=== PATIENT | male | born 1965 | race African-American/Black ===

== ENCOUNTER 2025-07-27 15:35 | Inpatient (IN) | payer MEDICAID, OTHER ==
[~2025-07-27] VITALS: Ht 175.3 cm; Wt 82.6 kg
[2025-07-27 15:44] VITALS: O2SAT 98
[2025-07-27] MEDS: ASPIRIN 325MG TABLET PO ONE (16:16)
[2025-07-27 16:48] LABS: BASOPHILS % 1.0 % (0.0-2.0); EOSINOPHILS % 2.8 % (0.0-5.0); HEMATOCRIT. 40.2 % (42.0-52.0); HEMOGLOBIN. 13.2 g/dL (14.0-18.0); LYMPHOCYTES % 50.3 % (20.0-50.0); MEAN PLATELET VOLUME 9.4 fl (7.4-10.4); MONOCYTES % 6.5 % (2.0-8.0); NEUTROPHILS % 39.4 % (40.0-76.0); PLATELET 175 x1000/uL (130-400); RED BLOOD CELL COUNT 4.66 mill/uL (4.7-6.1); RED CELL DISTRIBUTION WIDTH 15.3 % (11.6-14.6)
[2025-07-27 17:02] LABS: CREATININE 1.1 mg/dL (0.6-1.3); UREA NITROGEN BLOOD 9 mg/dL (9-23)
[2025-07-27 17:03] LABS: TROPONIN I HIGH SENSITIVITY 12 ng/L (3.0-53)
[2025-07-27 17:04] LABS: ASPARTATE AMINOTRANSFERASE 17 IU/L (<34); BILIRUBIN DIRECT < 0.1 mg/dL (<=3.0); BILIRUBIN TOTAL 0.4 mg/dL (0.1-1.0); PROTEIN TOTAL 7.0 g/dL (6.0-8.3)
[2025-07-27] MEDS: KETOROLAC 30MG/ML VIAL IV ONE (18:58)
[2025-07-27] MEDS ORDERED: ONDANSETRON HCL 4MG/2ML INJ IV PRN (20:15)
[2025-07-27] MEDS ORDERED: ZOLPIDEM TARTRATE 5MG TABLET PO PRN (20:15)
[2025-07-27] MEDS ORDERED: DEXTROSE 50% WATER 50ML SYRINGE IV PRN (20:15)
[2025-07-27] MEDS ORDERED: CLONIDINE 0.1MG TABLET PO PRN (20:15)
[2025-07-27] MEDS ORDERED: MAGNESIUM/ALUMINUM HYDROXIDE/SIMETHICONE 30ML UDC PO PRN (20:15)
[2025-07-27] MEDS: BLOOD SUGAR DIAGNOSTIC STRIP TEST SCH (21:00)
[2025-07-27 21:07] LABS: CLARITY URINE CLEAR (CLEAR); COLOR URINE YELLOW (YELLOW); GLUCOSE URINE NEGATIVE (NEGATIVE); KETONES URINE TRACE (NEGATIVE); LEUKOCYTE ESTERASE URINE NEGATIVE (NEGATIVE); NITRITE URINE NEGATIVE (NEGATIVE); OCCULT BLOOD URINE NEGATIVE (NEGATIVE); PH URINE 6.5 (4.5-8.0); PROTEIN URINE NEGATIVE (NEGATIVE); SPECIFIC GRAVITY URINE 1.018 (1.005-1.030); UROBILINOGEN URINE 0.2 E.U./dL (0.2-1.0)
[2025-07-27 21:14] LABS: *AMPHETAMINES SCREEN URINE NEGATIVE (NEGATIVE); *BARBITURATES SCREEN URINE NEGATIVE (NEGATIVE)
[2025-07-27 21:15] LABS: *BENZODIAZEPINES SCREEN URINE NEGATIVE (NEGATIVE); *COCAINE SCREEN URINE NEGATIVE (NEGATIVE); CANNABINOID URINE SCREEN PRESUMPTIVE POSITIVE (NEGATIVE); ECSTASY MDMA SCREEN URINE NEGATIVE (NEGATIVE); METHADONE URINE SCREEN NEGATIVE (NEGATIVE); OPIATES URINE SCREEN NEGATIVE (NEGATIVE); PHENCYCLIDINE URINE SCREEN NEGATIVE (NEGATIVE)
[2025-07-27] MEDS ORDERED: NALOXONE HCL 0.4MG/ML VIAL IV PRN (21:15)
[2025-07-27 21:54] VITALS: BP 166/95; PULSE 69; RESP 20; TEMP 37.2; O2SAT 98
[2025-07-27] MEDS: MORPHINE SULFATE 4 MG/ML INJ (FOR IV/IM USE) IV PRN (21:57)
[2025-07-28] VITALS: BP 123/59; PULSE 60; RESP 18; TEMP 37; O2SAT 100
[2025-07-28] MEDS ORDERED: CLON0.1T PO (01:01)
[2025-07-28] MEDS ORDERED: VALS160T28 PO (01:01)
[2025-07-28] MEDS ORDERED: AMLO5TAB88 PO (01:01)
[2025-07-28] MEDS ORDERED: TAMSULOSIN (01:01)
[2025-07-28] MEDS ORDERED: METF-414 PO (01:01)
[2025-07-28 04:00] VITALS: BP_SYST 159; PULSE 53; RESP 18; TEMP 36.6; O2SAT 100
[2025-07-28 05:29] VITALS: BP 166/95; PULSE 69; RESP 18; TEMP 37.1964
[2025-07-28 08:00] VITALS: BP 148/81; PULSE 60; RESP 18; TEMP 36.6; O2SAT 100
[2025-07-28 08:08] LABS: TROPONIN I HIGH SENSITIVITY 15 ng/L (3.0-53)
[2025-07-28 08:11] LABS: CREATININE 1.0 mg/dL (0.6-1.3); UREA NITROGEN BLOOD 11 mg/dL (9-23)
[2025-07-28 08:12] LABS: BASOPHILS % 0.6 % (0.0-2.0); EOSINOPHILS % 3.0 % (0.0-5.0); HEMATOCRIT. 41.0 % (42.0-52.0); HEMOGLOBIN. 13.3 g/dL (14.0-18.0); LYMPHOCYTES % 49.5 % (20.0-50.0); MEAN PLATELET VOLUME 9.8 fl (7.4-10.4); MONOCYTES % 7.0 % (2.0-8.0); NEUTROPHILS % 39.9 % (40.0-76.0); PLATELET 168 x1000/uL (130-400); RED BLOOD CELL COUNT 4.73 mill/uL (4.7-6.1); RED CELL DISTRIBUTION WIDTH 15.1 % (11.6-14.6)
[2025-07-28] MEDS: ENOXAPARIN 40MG/0.4ML SYR SUBCUT SCH (09:00)
[2025-07-28] MEDS: PANTOPRAZOLE SODIUM 40 MG/VIAL IV SCH (09:00)
[2025-07-28] MEDS: ACETAMINOPHEN 325MG TABLET PO PRN (13:03)
[2025-07-28 16:00] VITALS: BP 139/74; PULSE 59; RESP 18; TEMP 36.6; O2SAT 98
[2025-07-28 20:00] VITALS: BP 143/84; PULSE 60; RESP 16; TEMP 36.9; O2SAT 98
[2025-07-28] MEDS: ATORVASTATIN CALCIUM 40MG TABLET PO SCH (20:39)
[2025-07-28] MEDS: AMLODIPINE 5MG TABLET PO SCH (20:44)
[2025-07-28] MEDS: GABAPENTIN 300MG CAPSULE PO SCH (22:00)
[2025-07-29] VITALS: BP 126/63; PULSE 71; RESP 17; TEMP 36.7; O2SAT 97
[2025-07-29 04:00] VITALS: BP 160/64; PULSE 57; RESP 16; TEMP 36.2; O2SAT 96
[2025-07-29 08:00] VITALS: BP 145/72; PULSE 62; RESP 18; TEMP 36.4; O2SAT 97
[2025-07-29] MEDS: ASPIRIN 81MG EC TABLET PO SCH (08:57)
[2025-07-29] MEDS ORDERED: REGADENOSON 0.4 MG/5 ML IV NR (09:00)
[2025-07-29 09:20] LABS: BASOPHILS % 0.6 % (0.0-2.0); EOSINOPHILS % 1.8 % (0.0-5.0); HEMATOCRIT. 45.3 % (42.0-52.0); HEMOGLOBIN. 14.7 g/dL (14.0-18.0); LYMPHOCYTES % 44.4 % (20.0-50.0); MEAN PLATELET VOLUME 10.1 fl (7.4-10.4); MONOCYTES % 5.1 % (2.0-8.0); NEUTROPHILS % 48.1 % (40.0-76.0); PLATELET 181 x1000/uL (130-400); RED BLOOD CELL COUNT 5.22 mill/uL (4.7-6.1); RED CELL DISTRIBUTION WIDTH 15.1 % (11.6-14.6)
[2025-07-29 09:39] LABS: CREATININE 1.0 mg/dL (0.6-1.3); UREA NITROGEN BLOOD 9 mg/dL (9-23)
[2025-07-29 10:59] LABS: TRIGLYCERIDE 62 mg/dL (0-150)
[2025-07-29 11:00] LABS: LDL CHOLESTEROL 158 mg/dL (5-100)
[2025-07-29] MEDS ORDERED: ASPI-1406 PO (11:46)
[2025-07-29] MEDS ORDERED: LIP40 PO (11:46)
[2025-07-29] MEDS ORDERED: HYDR-4001 PO (11:46)
[2025-07-29] MEDS ORDERED: GABA-1180 PO (11:46)
[2025-07-29 12:00] VITALS: BP 137/67; PULSE 56; RESP 18; TEMP 36.5; O2SAT 100
[2025-07-29 16:00] VITALS: BP 145/89; PULSE 74; RESP 18; TEMP 36.5; O2SAT 100
[2025-07-29 20:00] VITALS: BP 158/86; PULSE 65; RESP 18; TEMP 36.4; O2SAT 98
[2025-07-29 22:37] LABS: TROPONIN I HIGH SENSITIVITY 17 ng/L (3.0-53)
[2025-07-29] MEDS: HYDROCODONE/ACETAMINOPHEN 5/325MG TABLET PO PRN (23:34)
[2025-07-30] VITALS: BP 145/89; PULSE 74; RESP 18; TEMP 36.5; O2SAT 100
[2025-07-30 04:00] VITALS: BP 112/64; PULSE 53; RESP 18; TEMP 36.6; O2SAT 99
[2025-07-30 08:00] VITALS: BP 123/78; PULSE 64; RESP 18; TEMP 36.9; O2SAT 99
[2025-07-30 12:00] VITALS: BP 159/79; PULSE 71; RESP 18; TEMP 36.5; O2SAT 96
[2025-07-30 16:00] VITALS: BP 142/86; PULSE 75; RESP 18; TEMP 36.6; O2SAT 100
[2025-07-30] MEDS ORDERED: DEXTROSE 50% WATER 50ML SYRINGE IV PRN (17:15)
[2025-07-30] MEDS: INSULIN LISPRO 100 UNITS/ML SUBCUT SCH (17:40)
[2025-07-30 20:00] VITALS: BP 164/94; PULSE 67; RESP 16; TEMP 36.4; O2SAT 99
[2025-07-30] MEDS ORDERED: BLOOD SUGAR DIAGNOSTIC STRIP TEST SCH (21:00)
[2025-07-30 22:21] LABS: BASOPHILS % 1.4 % (0.0-2.0); EOSINOPHILS % 1.8 % (0.0-5.0); HEMATOCRIT. 49.7 % (42.0-52.0); HEMOGLOBIN. 16.0 g/dL (14.0-18.0); LYMPHOCYTES % 48.9 % (20.0-50.0); MEAN PLATELET VOLUME 10.2 fl (7.4-10.4); MONOCYTES % 6.3 % (2.0-8.0); NEUTROPHILS % 41.6 % (40.0-76.0); PLATELET 182 x1000/uL (130-400); RED BLOOD CELL COUNT 5.74 mill/uL (4.7-6.1); RED CELL DISTRIBUTION WIDTH 15.2 % (11.6-14.6)
[2025-07-30 22:28] LABS: INR 0.9
[2025-07-30 22:33] LABS: CREATININE 1.1 mg/dL (0.6-1.3)
[2025-07-30 22:34] LABS: UREA NITROGEN BLOOD 12 mg/dL (9-23)
[2025-07-31] VITALS: BP 157/65; PULSE 62; RESP 16; TEMP 36.2; O2SAT 100
[2025-07-31 04:00] VITALS: BP 123/49; PULSE 56; RESP 16; TEMP 36.2; O2SAT 97
[2025-07-31 08:00] VITALS: BP 155/88; PULSE 78; RESP 19; TEMP 37.9; O2SAT 97
[2025-07-31 12:00] VITALS: BP 140/79; PULSE 79; RESP 19; TEMP 36.9; O2SAT 97
[2025-07-31 16:00] VITALS: BP 162/79; PULSE 67; RESP 18; TEMP 36.7; O2SAT 100
[2025-07-31 19:29] LABS: BASOPHILS % 0.9 % (0.0-2.0); EOSINOPHILS % 1.8 % (0.0-5.0); HEMATOCRIT. 47.9 % (42.0-52.0); HEMOGLOBIN. 15.8 g/dL (14.0-18.0); LYMPHOCYTES % 42.4 % (20.0-50.0); MEAN PLATELET VOLUME 10.2 fl (7.4-10.4); MONOCYTES % 5.7 % (2.0-8.0); NEUTROPHILS % 49.2 % (40.0-76.0); PLATELET 172 x1000/uL (130-400); RED BLOOD CELL COUNT 5.50 mill/uL (4.7-6.1); RED CELL DISTRIBUTION WIDTH 15.2 % (11.6-14.6)
[2025-07-31 19:43] LABS: CREATININE 1.0 mg/dL (0.6-1.3); TROPONIN I HIGH SENSITIVITY 19 ng/L (3.0-53); UREA NITROGEN BLOOD 11 mg/dL (9-23)
[2025-07-31 20:00] VITALS: BP 129/64; PULSE 65; RESP 16; TEMP 36.1; O2SAT 97
[2025-08-01] VITALS: BP 131/87; PULSE 67; RESP 18; TEMP 36.4; O2SAT 99
[2025-08-01 04:00] VITALS: BP 148/77; PULSE 64; RESP 18; TEMP 36.7; O2SAT 99
[2025-08-01 07:10] LABS: BASOPHILS % 0.8 % (0.0-2.0); EOSINOPHILS % 1.8 % (0.0-5.0); HEMATOCRIT. 50.1 % (42.0-52.0); HEMOGLOBIN. 16.2 g/dL (14.0-18.0); LYMPHOCYTES % 56.7 % (20.0-50.0); MEAN PLATELET VOLUME 10.3 fl (7.4-10.4); MONOCYTES % 7.2 % (2.0-8.0); NEUTROPHILS % 33.5 % (40.0-76.0); PLATELET 171 x1000/uL (130-400); RED BLOOD CELL COUNT 5.79 mill/uL (4.7-6.1); RED CELL DISTRIBUTION WIDTH 15.1 % (11.6-14.6)
[2025-08-01 07:22] LABS: CREATININE 1.0 mg/dL (0.6-1.3); TROPONIN I HIGH SENSITIVITY 19 ng/L (3.0-53); UREA NITROGEN BLOOD 11 mg/dL (9-23)
[2025-08-01 08:00] VITALS: BP 168/68; PULSE 71; RESP 20; TEMP 36.8; O2SAT 98
[2025-08-01] MEDS ORDERED: METOPROLOL TARTRATE 5MG/5ML VIAL IV PRN (08:45)
[2025-08-01] MEDS: METOPROLOL TARTRATE 25MG TABLET PO SCH (09:58)
[2025-08-01] MEDS: AMLODIPINE 2.5MG TABLET PO SCH (09:59)
[2025-08-01 12:00] VITALS: BP 132/65; PULSE 75; RESP 20; TEMP 36.8; O2SAT 98
[2025-08-01 16:00] VITALS: BP 143/72; PULSE 79; RESP 20; TEMP 36.7; O2SAT 97
[2025-08-01 20:00] VITALS: BP 126/82; PULSE 67; RESP 18; TEMP 36.6; O2SAT 99
[2025-08-02] VITALS: BP 148/79; PULSE 70; RESP 17; TEMP 36.7; O2SAT 100
[2025-08-02 04:00] VITALS: BP 124/72; PULSE 66; RESP 18; TEMP 36.5; O2SAT 99
[2025-08-02] MEDS ORDERED: METOPROLOL TARTRATE 5MG/5ML VIAL IV PRN (06:00)
[2025-08-02] MEDS ORDERED: LIDOCAINE HCL 1% 10 MG/ML 10ML VIAL ONE (08:19)
[2025-08-02 09:00] VITALS: BP 185/82; PULSE 88; RESP 20; TEMP 36.1; O2SAT 96
[2025-08-02 10:38] LABS: BASOPHILS % 0.8 % (0.0-2.0); EOSINOPHILS % 0.6 % (0.0-5.0); HEMATOCRIT. 43.8 % (42.0-52.0); HEMOGLOBIN. 14.2 g/dL (14.0-18.0); LYMPHOCYTES % 36.6 % (20.0-50.0); MEAN PLATELET VOLUME 9.5 fl (7.4-10.4); MONOCYTES % 5.8 % (2.0-8.0); NEUTROPHILS % 56.2 % (40.0-76.0); PLATELET 173 x1000/uL (130-400); RED BLOOD CELL COUNT 5.09 mill/uL (4.7-6.1); RED CELL DISTRIBUTION WIDTH 15.0 % (11.6-14.6)
[2025-08-02 10:51] LABS: CREATININE 1.0 mg/dL (0.6-1.3); UREA NITROGEN BLOOD 12 mg/dL (9-23)
[2025-08-02 12:00] VITALS: BP 130/61; PULSE 80; RESP 20; TEMP 36.3; O2SAT 96
[2025-08-02] MEDS: NITROGLYCERIN SPRAY/4.9GM CAN TL ONE (12:45)
[2025-08-02] MEDS: IOHEXOL-350 100 ML BOTTLE ONE (14:54)
[2025-08-02 20:00] VITALS: BP 143/79; PULSE 82; RESP 18; TEMP 36.6; O2SAT 98
[2025-08-03] VITALS: BP 136/78; PULSE 80; RESP 18; TEMP 36.7; O2SAT 99
[2025-08-03] MEDS: HYDROCODONE/ACETAMINOPHEN 5/325MG TABLET PO PRN (02:48)
[2025-08-03 04:00] VITALS: BP 132/68; PULSE 78; RESP 16; TEMP 36.8; O2SAT 98
[2025-08-03 08:00] VITALS: BP 147/77; PULSE 81; RESP 20; TEMP 36.6; O2SAT 95
[2025-08-03 12:00] VITALS: BP 141/76; PULSE 74; RESP 20; TEMP 36.4; O2SAT 96
[2025-08-03 12:48] VITALS: BP 141/76; PULSE 74; RESP 20; TEMP 97.6
[2025-08-04] MEDS ORDERED: AMLO10TA80 MT (15:59)
[2025-08-04] MEDS ORDERED: LOSA100T33 MT (15:59)
== END 2025-08-03 13:51 | disposition home or self-care (01) | DRG 347 ==
LOC: ER 15:35 → EDBEDREQ 19:06 → 8WST 20:59
PROVIDERS: ADMIT Internal Medicine; ATTEND Internal Medicine
PROC: 02HV33Z Insertion of Infusion Device into Superior Vena Cava, Percutaneous Approach (ICD-10-PCS; principal; 2025-08-01)
PROC: B5181ZA Fluoroscopy of Superior Vena Cava using Low Osmolar Contrast, Guidance (ICD-10-PCS; 2025-08-01)
PROC: B548ZZA Ultrasonography of Superior Vena Cava, Guidance (ICD-10-PCS; 2025-08-01)
DX: M48.03 Spinal stenosis, cervicothoracic region (principal); G82.50 Quadriplegia, unspecified; G99.2 Myelopathy in diseases classified elsewhere; I24.9 Acute ischemic heart disease, unspecified; I25.10 Atherosclerotic heart disease of native coronary artery without angina pectoris; I25.2 Old myocardial infarction; E11.9 Type 2 diabetes mellitus without complications; M47.812 Spondylosis without myelopathy or radiculopathy, cervical region; I11.9 Hypertensive heart disease without heart failure; F17.210 Nicotine dependence, cigarettes, uncomplicated; G89.29 Other chronic pain; M48.061 Spinal stenosis, lumbar region without neurogenic claudication; M50.222 Other cervical disc displacement at C5-C6 level; N40.0 Benign prostatic hyperplasia without lower urinary tract symptoms; M41.9 Scoliosis, unspecified; Z79.899 Other long term (current) drug therapy; Z86.73 Personal history of transient ischemic attack (TIA), and cerebral infarction without residual deficits
CPT/HCPCS: 36415; 71045; 72040; 72141; 72146; 72148; 75571; 77001; 80048; 80061; 80076; 80305; 81003; 82962; 83036; 83735; 83880; 84443; 84484; 85025; 86850; 86900; 93005; 93306; 93970; 97162; 99285; A4606; C1725; J1650; J1815; J1885; J2003; J2270; J2470; J2785; Q9967